=== PATIENT | female | born 1990 | race Caucasian/White ===

== ENCOUNTER 2016-10-22 14:09 | Emergency (ER) | payer MEDICAID ==
--- NOTE | 2016-10-26 17:07 | ER ---
ADMIT: 10/22/2016 RM/LOC: ER [facility] MR#: [id number] [address] [facility] [id number] [place], [place] [id number] [address] [place] [id number] Emergency Room Report SEX: F AGE: 26 : 1990 DATE: 10/22/2016 ADDENDUM: A 26-year-old female coming in with acute onset lower back after she coughed. She felt a pop coming and going down both legs. It was earlier today or yesterday. Still has pain. At this time, this is a mechanical back strain, low back. I gave her prednisone 40 mg p.o. daily and then 16 Lortab 5/325, 1 to 2 p.o. q.6 p.r.n. pain. Ice, heat. I gave her a doc for followup. CONDITION ON DISCHARGE: Good. Ambrosio Whitney MD/ cheryl JOB #: [id number] CC: Ambrosio Whitney MD, Attending Physician Travis Crandall MD, Family Physician
== END 2016-10-22 15:29 | disposition home or self-care (01) ==
LOC: ER 14:09
DX: S39.012A Strain of muscle, fascia and tendon of lower back, initial encounter (principal); F17.210 Nicotine dependence, cigarettes, uncomplicated; W19.XXXA Unspecified fall, initial encounter